=== PATIENT | male | born 1945 | race Caucasian/White ===

== ENCOUNTER 2018-08-19 11:09 | Outpatient (CLI) | payer OTHER ==
--- NOTE | 2018-08-19 13:34 | DI ---
EXAM: Three views of the right hand HISTORY: Fall. COMPARISON: Right wrist x-rays same day FINDINGS: The right hand demonstrates a anterior angulated minimally displaced fracture of the distal fifth metacarpal. No additional fracture is identified. There is scattered narrowing and osteophyt e formation throughout the DIP joint. The MCP joints, PIP joints and remaining joint spaces are unre markable. Soft tissues demonstrate lateral soft tissue swelling. IMPRESSION: Minimally displaced anterior angulated fracture of the distal fifth metacarpal.
--- NOTE | 2018-08-19 13:35 | DI ---
EXAM: Three views of the right wrist HISTORY: Fall. COMPARISON: Same day right hand FINDINGS: The distal fifth metacarpal fracture is better visualized on the right hand. The radiocarp al joint is mildly narrowed. The carpal bones, radius and ulna are unremarkable. The soft tissues a re normal. There is no lytic or blastic lesion. IMPRESSION: 1. A minimally displaced fracture of the distal fifth metacarpal. 2. Minimal degenerative change of the radiocarpal joint.
== END 2018-08-19 11:10 | disposition home or self-care (01) ==
LOC: RAD 11:09
PROVIDERS: ATTEND Family Medicine
DX: S69.91XA Unspecified injury of right wrist, hand and finger(s), initial encounter (principal); W10.8XXA Fall (on) (from) other stairs and steps, initial encounter